=== PATIENT | male | born 1985 | race Caucasian/White ===

== ENCOUNTER 2017-08-24 16:45 | Emergency (ER) | payer MEDICAID, OTHER ==
[~2017-08-24] VITALS: Ht 175.3 cm; Wt 79.0 kg
[2017-08-24] MEDS ORDERED: ONDANSETRON 4MG ODT PO ONE (22:15)
[2017-08-24] MEDS ORDERED: BACITRACIN ZINC OINT UDPKT TOP ONE (22:15)
[2017-08-24] MEDS ORDERED: LIDOCAINE HCL 1% 20ML VIAL (Pyxis) INJ MC ONE (22:15)
[2017-08-24] MEDS ORDERED: KETOROLAC 30MG/ML VIAL IM ONE (22:15)
[2017-08-24] MEDS ORDERED: TETANUS, DIPHTHERIA, PERTUSSIS VAC/PF 0.5ML (>7YR OLD) IM ONE (22:15)
[2017-08-24 22:47] VITALS: BP 152/78
== END 2017-08-24 23:55 | disposition left against medical advice (07) ==
LOC: ER 17:36
DX: S61.512A Laceration without foreign body of left wrist, initial encounter (principal); F12.10 Cannabis abuse, uncomplicated; Y08.89XA Assault by other specified means, initial encounter; Y93.89 Activity, other specified; Y92.89 Other specified places as the place of occurrence of the external cause; Y99.8 Other external cause status
CPT/HCPCS: 12002; 90471; 90715; 96372; 99284; J1885; J3490; Q0162; X7700; Z7610

== ENCOUNTER 2019-04-15 23:01 | Emergency (ER) | payer MEDICAID ==
[~2019-04-15] VITALS: Ht 167.6 cm; Wt 82.0 kg
[2019-04-16] MEDS ORDERED: KETOROLAC 60MG/2ML VIAL IM ONE (01:00)
[2019-04-16 04:01] VITALS: BP 122/65
== END 2019-04-16 04:04 | disposition home or self-care (01) ==
LOC: ER 23:02
DX: S16.1XXA Strain of muscle, fascia and tendon at neck level, initial encounter (principal); W01.0XXA Fall on same level from slipping, tripping and stumbling without subsequent striking against object, initial encounter; Y93.89 Activity, other specified; Y92.89 Other specified places as the place of occurrence of the external cause; Y99.8 Other external cause status; M25.561 Pain in right knee; M25.531 Pain in right wrist; M79.641 Pain in right hand; M25.511 Pain in right shoulder; F12.10 Cannabis abuse, uncomplicated
CPT/HCPCS: 73030; 73110; 73130; 73560; 99283; J1885